=== PATIENT | female | born 1960 | race African-American/Black ===

== ENCOUNTER 2017-06-28 22:23 | Emergency (ER) | payer MEDICAID, OTHER ==
[~2017-06-28] VITALS: Ht 167.6 cm; Wt 72.0 kg
[~2017-06-28 22:23] MED LIST: AMLO10TA80 PO; ASPI-1160 PO; CLOP75TA15 PO; DIPH25CA83 PO; GLIP5TAB12 PO; HYDR-519 PO; Isosorbide Mononitrate PO; LEVO100T9 PO; LORA1TAB PO; METF500T4 PO; METO100T5 PO; SIMV20TA6 PO; TERB250T11 PO
[2017-06-29] MEDS ORDERED: KETOROLAC 30MG/ML VIAL IV STA (00:55)
[2017-06-29] MEDS ORDERED: MAGNESIUM/ALUMINUM HYDROXIDE/SIMETHICONE 30ML UDC PO ONE (01:00)
[2017-06-29] MEDS ORDERED: ASPIRIN 81MG TABLET PO ONE (01:00)
[2017-06-29 01:26] LABS: BASOPHILS % 0.6 % (0.0-2.0); EOSINOPHILS % 0.4 % (0.0-5.0); HEMOGLOBIN. 14.3 g/dL (12.0-16.0); LYMPHOCYTES % 22.1 % (20.0-50.0); MEAN CORPUSCULAR HEMOGLOBIN 29.9 pg (28.0-32.0); MEAN CORPUSCULAR VOLUME 88.1 fL (81.0-99.0); MEAN PLATELET VOLUME 7.4 fl (7.4-10.4); MONOCYTES % 5.6 % (2.0-8.0); NEUTROPHILS % 71.3 % (40.0-76.0); PLATELET 313 x1000/uL (130-400); RED BLOOD CELL COUNT 4.77 mill/uL (4.2-5.4)
[2017-06-29 01:35] LABS: D-DIMER 0.31 mg/L FEU (<0.50); PROTHROMBIN TIME 10.8 sec (9.4-11.6)
[2017-06-29 01:39] LABS: HCG SCREEN NEGATIVE
[2017-06-29 01:50] LABS: CARBON DIOXIDE 28 mEq/L (21-32); CHLORIDE 104 mEq/L (98-107); ETHANOL BLOOD < 10 mg/dL
[2017-06-29 01:52] LABS: TROPONIN I < 0.02 ng/mL (0.00-0.04)
[2017-06-29 03:10] VITALS: BP 125/69
== END 2017-06-29 03:11 | disposition home or self-care (01) ==
LOC: ER 22:32
DX: R07.9 Chest pain, unspecified (principal); I10 Essential (primary) hypertension; E11.9 Type 2 diabetes mellitus without complications; Z86.73 Personal history of transient ischemic attack (TIA), and cerebral infarction without residual deficits
CPT/HCPCS: 36415; 71010; 80053; 82962; 83690; 83880; 84484; 84703; 85025; 85379; 85610; 93005; 96374; 99285; G0482; J1885; Z7610

== ENCOUNTER 2017-10-31 21:17 | Inpatient (IN) | payer SELFPAY ==
[~2017-10-31] VITALS: Ht 167.6 cm; Wt 78.5 kg
[~2017-10-31 21:17] MED LIST changes: +METO100T16 PO; -METO100T5 PO
[2017-10-31] MEDS ORDERED: SODIUM CHLORIDE 0.9% 1,000 ML IV ONE (23:25)
[2017-10-31] MEDS ORDERED: ONDANSETRON HCL 4MG/2ML VIAL IV STA (23:25)
[2017-10-31] MEDS ORDERED: MORPHINE SULFATE 4 MG/ML CPJ (NOT FOR IM USE) IV STA (23:25)
[2017-10-31 23:53] LABS: BASOPHILS % 1.2 % (0.0-2.0); EOSINOPHILS % 1.2 % (0.0-5.0); HEMATOCRIT. 38.3 % (36.0-48.0); HEMOGLOBIN. 12.9 g/dL (12.0-16.0); LYMPHOCYTES % 54.4 % (20.0-50.0); MEAN PLATELET VOLUME 7.8 fl (7.4-10.4); MONOCYTES % 7.9 % (2.0-8.0); NEUTROPHILS % 35.3 % (40.0-76.0); PLATELET 281 x1000/uL (130-400)
[2017-11-01 00:11] LABS: CARBON DIOXIDE 29 mEq/L (21-32); CHLORIDE 105 mEq/L (98-107); TROPONIN I < 0.02 ng/mL (0.00-0.04)
[2017-11-01] MEDS ORDERED: IOHEXOL-350 100 ML BOTTLE ONE (03:52)
[2017-11-01] MEDS: MORPHINE SULFATE 2 MG/ML CPJ (NOT FOR IM USE) IV PRN ×3 (05:10→18:43)
[2017-11-01] MEDS ORDERED: MORPHINE SULFATE 2 MG/ML CPJ (NOT FOR IM USE) IV PRN (06:30)
[2017-11-01] MEDS ORDERED: ONDANSETRON HCL 4MG/2ML VIAL IV PRN (06:30)
[2017-11-01] MEDS ORDERED: NA PHOS,M-B/NA PHOS,DI-BA ENEMA 118ML PR PRN (06:30)
[2017-11-01] MEDS ORDERED: MAGNESIUM/ALUMINUM HYDROXIDE/SIMETHICONE 30ML UDC PO PRN (06:30)
[2017-11-01] MEDS ORDERED: LORAZEPAM 0.5MG TABLET PO PRN (06:30)
[2017-11-01] MEDS ORDERED: DOCUSATE SODIUM 100MG CAPSULE PO PRN (06:30)
[2017-11-01] MEDS ORDERED: DIPHENHYDRAMINE 50MG/ML VIAL IV PRN (06:30)
[2017-11-01] MEDS ORDERED: CLONIDINE 0.1MG TABLET PO PRN (06:30)
[2017-11-01] MEDS ORDERED: HYDROCODONE/APAP 7.5/325MG 1 TAB TABLET PO PRN (06:30)
[2017-11-01] MEDS ORDERED: ACETAMINOPHEN 325MG TABLET PO PRN (06:30)
[2017-11-01] MEDS ORDERED: GUAIFENESIN 200MG/10ML SUGAR FREE UDC PO PRN (06:30)
[2017-11-01 07:57] LABS: CARBON DIOXIDE 28 mEq/L (21-32); CHLORIDE 106 mEq/L (98-107)
[2017-11-01] MEDS ORDERED: ASPIRIN 81MG EC TABLET PO SCH (09:00)
[2017-11-01] MEDS ORDERED: IPRATROPIUM/ALBUTEROL 0.5-3(2.5)MG/3ML NEB INH PRN (09:00)
[2017-11-01] MEDS ORDERED: ENOXAPARIN 40MG/0.4ML SYR SUBCUT SCH (09:00)
[2017-11-01 10:07] VITALS: BP 139/67
[2017-11-01] MEDS ORDERED: POTASSIUM CHLORIDE 20MEQ TABLET SR PO NR (11:15)
[2017-11-01] MEDS ORDERED: CLOPIDOGREL 75MG TABLET PO SCH (11:15)
[2017-11-01] MEDS ORDERED: METOPROLOL TARTRATE 25MG TABLET PO SCH (11:15)
[2017-11-01] MEDS ORDERED: AMLODIPINE 5MG TABLET PO SCH (11:15)
[2017-11-01 12:00] VITALS: BP 132/84
[2017-11-01 16:00] VITALS: BP 134/70
[2017-11-01 18:43] VITALS: BP 127/64
[2017-11-01] MEDS ORDERED: DEXTROSE 50% WATER 50ML SYRINGE IV PRN (19:15)
[2017-11-01] MEDS ORDERED: ATORVASTATIN CALCIUM 40MG TABLET PO SCH (21:00)
[2017-11-01] MEDS ORDERED: BLOOD SUGAR DIAGNOSTIC STRIP TEST SCH (21:00)
[2017-11-01] MEDS ORDERED: INSULIN LISPRO 100 UNITS/ML SUBCUT SCH (21:00)
== END 2017-11-01 20:30 | disposition left against medical advice (07) | DRG 198 ==
LOC: ER 21:53 → 8WST 11-01 02:06 → EDBEDREQTM 11-01 02:23 → EDBEDREQ 11-01 02:23 → EDBEDREQDT 11-01 02:23 → ENRESERV 11-01 07:23
PROVIDERS: ADMIT Internal Medicine; ATTEND Internal Medicine
DX: R07.89 Other chest pain (principal); I25.2 Old myocardial infarction; I11.0 Hypertensive heart disease with heart failure; I50.9 Heart failure, unspecified; I25.10 Atherosclerotic heart disease of native coronary artery without angina pectoris; E11.9 Type 2 diabetes mellitus without complications; E87.6 Hypokalemia; Z53.21 Procedure and treatment not carried out due to patient leaving prior to being seen by health care provider; E78.5 Hyperlipidemia, unspecified; E03.9 Hypothyroidism, unspecified; F17.200 Nicotine dependence, unspecified, uncomplicated; Z95.1 Presence of aortocoronary bypass graft; Z79.899 Other long term (current) drug therapy; Z79.84 Long term (current) use of oral hypoglycemic drugs; Z79.02 Long term (current) use of antithrombotics/antiplatelets; Z83.3 Family history of diabetes mellitus; Z82.49 Family history of ischemic heart disease and other diseases of the circulatory system; Z79.82 Long term (current) use of aspirin; Z95.828 Presence of other vascular implants and grafts
CPT/HCPCS: 36415; 71010; 71275; 80048; 80053; 82962; 83690; 83880; 84484; 85025; 93005; 96361; 96374; 96375; 99285; J1650; J2270; J2405; J7030; Q9967